=== PATIENT | male | born 1985 | race Caucasian/White ===

== ENCOUNTER 2016-07-02 07:50 | Day surgery (SDC) | payer OTHER ==
[2016-07-02] MEDS ORDERED: LACTATED RINGERS 1,000 ML ONE (07:52)
[2016-07-02] MEDS ORDERED: IV START KIT ONE (07:52)
[2016-07-02] MEDS ORDERED: CEFAZOLIN SODIUM 2 GRAM PREMIX 2 G in Premix (D5W) 100 ml 1 EACH IV PRN (08:05)
[2016-07-02] MEDS ORDERED: LACTATED RINGERS 1,000 ML IV SCH ×3 (08:05→13:02)
[2016-07-02] MEDS ORDERED: LIDOCAINE 1% 2 ML VIAL ID PRN (08:05)
[2016-07-02] MEDS ORDERED: ROPIVACAINE 0.5% 30 ML VIAL ONE (08:18)
[2016-07-02] MEDS ORDERED: PROPOFOL 60 ML IV ONE ×2 (08:18→11:26)
[2016-07-02] MEDS ORDERED: METOCLOPRAMIDE HCL 5 MG/ML 2ML VIAL ONE (08:18)
[2016-07-02] MEDS ORDERED: LIDOCAINE 2% (PRES FREE) 5 ML VIAL ONE (08:18)
[2016-07-02] MEDS ORDERED: MIDAZOLAM HCL 1 MG/ML 2ML VIAL ONE ×2 (08:18→10:30)
[2016-07-02] MEDS ORDERED: DEXAMETHASONE SOD PHOS 4 MG/1 ML VIAL ONE (08:18)
[2016-07-02] MEDS ORDERED: FENTANYL 100 MCG/2 ML VIAL ONE ×2 (08:18→12:46)
[2016-07-02] MEDS ORDERED: BUPIVACAINE 0.5% (PRES FREE) 30 ML VIAL ONE (10:12)
[2016-07-02] MEDS ORDERED: LIDOCAINE 1% (PRES FREE) 30 ML VIAL ONE (10:12)
[2016-07-02] MEDS ORDERED: NERVE BLOCK PROCEDURAL TRAY 1 EACH ONE (10:18)
[2016-07-02] MEDS ORDERED: KETAMINE HCL UD SYRINGE 100 MG/2 ML IV ONE ×2 (10:43→11:25)
[2016-07-02] MEDS ORDERED: PROPOFOL 20 ML IV ONE (11:25)
[2016-07-02] MEDS ORDERED: ATROPINE SULFATE 0.4 MG/1 ML VIAL IV PRN (11:36)
[2016-07-02] MEDS ORDERED: NALOXONE HCL 0.4 MG/ML VIAL IV PRN (11:36)
[2016-07-02] MEDS ORDERED: PROMETHAZINE HCL 25 MG/ML VIAL IM PRN (11:36)
[2016-07-02] MEDS ORDERED: HYDROMORPHONE HCL 1 MG/ML SYRINGE IV PRN ×2 (11:36→13:02)
[2016-07-02] MEDS ORDERED: FENTANYL 100 MCG/2 ML VIAL IV PRN (11:36)
[2016-07-02] MEDS ORDERED: ONDANSETRON 4 MG/2ML 2 ML VIAL IV PRN ×2 (11:36→13:02)
--- NOTE | 2016-07-02 12:50 | PCMBPN ---
Brief Post Op Note: Date of Procedure: 07/02/16 Preoperative Diagnosis: 1. Right gynecomastia Postoperative Diagnosis: 1. Same Procedure: Right Mastectomy Surgeon: Donna Ruiz MD Assist:Mari Dougherty Anesthesia: General w/ block Findings: see dictation Condition: stable Complications: none IV Fluids: see anesthesia report Urine Output: not recorded Estimated Blood Loss: 20 mLs Tourniquet Time: N/A Specimens: right breast Implants: n/a Drains: 10 F
[2016-07-02] MEDS ORDERED: OXYCODONE/ACETAMINOPHEN 5/325 MG TABLET PO PRN (13:02)
--- NOTE | 2016-07-02 13:31 | OP ---
EDDIE KAYE : 1985 [id number] DATE OF SERVICE: July 02, 2016 PREOPERATIVE DIAGNOSIS: Right gynecomastia. POSTOPERATIVE DIAGNOSIS: Right gynecomastia. PROCEDURE PERFORMED: RIGHT MASTECTOMY. SURGEON: Donna Ruiz M.D. AWNING HANGER SUPERVISOR: Kassandra Saldaña ANESTHESIA: Right chest block as well as general anesthesia. FINDINGS: Normal breast tissue. TECHNIQUE: The patient was brought back to the operating room, had a block placed and then placed under deep sedation. The right breast was prepped and draped in sterile surgical fashion. Local anesthetic with 1% lidocaine plain was placed into the skin and subcutaneous tissue in the inferior portion of the breast and then a transverse incision about 5 cm was opened with a #15 blade scalpel and then electrocautery was used to cut through the deep dermis and remove the breast from the subcutaneous fat. I followed the line of the breast as best I could. I did leave good rim of tissue around the nipple. I did not want to go through the skin and this was not done for a cancer operation. I did get a little close to the skin and burned a little hole in the skin in the upper portion of the breast but otherwise, I was able to remove the breast tissue from the subcutaneous tissue without issue, and then I used a rake retractor to help hold the breast tissue and peel it off of the pectoralis fascia using electrocautery as well. After the breast was out, I irrigated the cavity with warm water, sent the specimen off for permanent and used electrocautery for hemostasis. Once I had good hemostasis, I placed a #10 Greek drain in the cavity, sutured it in place with #2-0 nylon stitch and closed the deep dermis with #3-0 Vicryl and closed the skin incision with #4-0 Monocryl. SteriStrips were applied and the patient was awakened and returned to recovery room in stable condition. All needle instrument and sponge counts were correct at the end of the case.
--- NOTE | 2016-07-05 09:59 | SURGPATH ---
[facility] [address] [place] [id number] Patient Name: EDDIE VALENZUELA MR#: [id number] : 1985 Gender: M Specimen #: [id number] Collected: 07/02/2016 Received: 07/04/2016 Reported: 07/05/2016 Submitting Phys: SERGEY FERNANDEZ Copy To Phys: [facility] Clinical History / Pre-Operative Diagnosis: Right breast hypertrophy; history of testicular CA 2016 with chemotherapy Specimen Source / Surgical Procedure Performed: Right breast Interpretation: BREAST, RIGHT, EXCISION: - GYNECOMASTIA Electronically Signed Out Esau Garcia M.D. Gross Description: The specimen is received in a formalin filled container labeled with the patient's name and "right breast". A lobular excision of yellow-smith, fibrofatty tissue is 11.0 x 8.5 x 3 cm and 114 g. The surgical margins are inked black. Sectioning reveals soft lobular adipose tissue with the small amount of dense, pale pink-solorio fibroglandular tissue. There is no nodule or induration. [facility] 5 cassettes Mario Tapia 1: [id number]
== END 2016-07-02 15:45 | disposition home or self-care (01) ==
LOC: SDC 07:50
PROVIDERS: ATTEND Surgery
PROC: 0HBT0ZZ Excision of Right Breast, Open Approach (ICD-10-PCS; principal; 2016-07-02)
DX: N62 Hypertrophy of breast (principal); Z85.47 Personal history of malignant neoplasm of testis; Z80.42 Family history of malignant neoplasm of prostate
CPT/HCPCS: 19304; J3010 ×2; J1100; J2795; J2765; J2250 ×2; J2001; J7120